=== PATIENT | female | born 1985 | race Caucasian/White ===

== ENCOUNTER 2017-12-16 20:43 | Emergency (ER) | payer OTHER ==
[~2017-12-16] VITALS: Ht 167.6 cm; Wt 114.4 kg
[~2017-12-16 20:43] MED LIST: CARAFATE100 MG/ML PO; MOTRIN600 MG PO; NAPROSYN500 MG PO; PEPCID40 MG PO; PERCOCET 5/31 TABLET PO; TRAMADOL HCL50 MG PO
[2017-12-16 21:37] LABS: HEMATOCRIT 41.9 % (36.0-46.0); HEMOGLOBIN 14.1 G/DL (11.9-15.5); MCH 29.3 PG (29.0-34.0); MCHC 33.7 G/DL (30.0-36.0); MCV 86.9 FL (83-99); PLATELET COUNT 372 K/uL (156-360); RBC DIS.WIDTH-CV 12.4 % (11.8-14.6); RBC DIS.WIDTH-SD 39.3 % (39-53); RED BLOOD COUNT 4.82 M/uL (3.80-5.20); WHITE BLOOD COUNT 8.9 K/uL (4.1-10.2)
[2017-12-16 21:51] LABS: CHLORIDE 107 mEq/L (99-109); SODIUM 138 mEq/L (136-147)
[2017-12-16 21:52] LABS: GLUCOSE 95 mg/dL (70-99)
[2017-12-16 21:56] LABS: CREATININE 0.7 mg/dL (0.6-1.3); GFR ESTIMATE (CALCULATED) > 59 mL/min/
[2017-12-16 21:57] LABS: TROP-I INTERPRETATION NEGATIVE; TROPONIN-I < 0.01 ng/mL (0.0-0.30); UREA NITROGEN (BUN) 15 mg/dL (9-23)
[2017-12-16 22:51] LABS: MAGNESIUM 2.2 mg/dL (1.3-2.7)
[2017-12-16 22:57] LABS: CREATINE KINASE 70 IU/L (1-294)
[2017-12-16 23:41] VITALS: BP 129/79
== END 2017-12-17 | disposition home or self-care (01) ==
LOC: EME 20:43
DX: R20.2 Paresthesia of skin (principal); Z86.69 Personal history of other diseases of the nervous system and sense organs; M79.602 Pain in left arm; R07.9 Chest pain, unspecified
CPT/HCPCS: 71046; 80048; 82550; 83735; 84484; 85027; 85379; 93005; 99281; 99283